=== PATIENT | male | born 1940 | race African-American/Black ===

== ENCOUNTER 2019-12-25 08:19 | Inpatient (IN) | payer SELFPAY ==
[~2019-12-25] VITALS: Ht 177.8 cm; Wt 108.4 kg
[2019-12-25 09:59] LABS: CHLORIDE 112 mEq/L (98-107)
[2019-12-25] MEDS ORDERED: ACETAMINOPHEN 325MG TABLET PO ONE (10:45)
[2019-12-25 11:13] LABS: BASOPHILS % 0.8 % (0.0-2.0); EOSINOPHILS % 1.5 % (0.0-5.0); HEMATOCRIT. 37.7 % (42.0-52.0); HEMOGLOBIN. 12.5 g/dL (14.0-18.0); LYMPHOCYTES % 21.6 % (20.0-50.0); MEAN CORPUSCULAR HEMOGLOBIN 28.7 pg (28.0-32.0); MEAN CORPUSCULAR VOLUME 86.6 fL (80.0-94.0); MEAN PLATELET VOLUME 9.2 fl (7.4-10.4); MONOCYTES % 7.6 % (2.0-8.0); NEUTROPHILS % 68.5 % (40.0-76.0); PLATELET 153 x1000/uL (130-400); RED BLOOD CELL COUNT 4.36 mill/uL (4.7-6.1); RED CELL DISTRIBUTION WIDTH 14.9 % (11.6-14.6)
[2019-12-25] MEDS ORDERED: LEVOFLOXACIN 750MG PREMIX 150 ML IV ONE (11:30)
[2019-12-25] MEDS ORDERED: METRONIDAZOLE 500 MG PREMIX 100 ML IV ONE (11:30)
[2019-12-25] MEDS ORDERED: MORPHINE SULFATE 4 MG/ML CPJ (NOT FOR IM USE) IV ONE (11:30)
[2019-12-25] MEDS: DEXT 5%/0.45% NACL 1000ML 1,000 ML IV SCH (14:10)
[2019-12-25] MEDS ORDERED: ONDANSETRON HCL 4MG/2ML INJ IV PRN (14:15)
[2019-12-25] MEDS ORDERED: MORPHINE SULFATE 2 MG/ML CPJ (NOT FOR IM USE) IV PRN (14:15)
[2019-12-25] MEDS ORDERED: HYDRALAZINE HCL 100MG TABLET PO NR (21:15)
[2019-12-25 22:00] VITALS: BP 162/98
[2019-12-26 08:00] VITALS: BP 148/67
[2019-12-26 12:00] VITALS: BP 178/80
[2019-12-26] MEDS ORDERED: LISINOPRIL 20MG TABLET PO NR (12:34)
[2019-12-26 20:28] VITALS: BP 136/70
[2019-12-26] MEDS: LISINOPRIL 20MG TABLET PO SCH (20:48)
[2019-12-27] VITALS: BP 151/58
[2019-12-27] MEDS: HYDROCODONE/ACETAMINOPHEN 10/325MG TABLET PO PRN ×2 (01:54→17:51)
[2019-12-27 04:00] VITALS: BP 161/61
[2019-12-27 08:00] VITALS: BP 163/74
[2019-12-27] MEDS: LISINOPRIL 20MG TABLET PO SCH ×2 (08:54→22:08)
[2019-12-27] MEDS: GUAIFENESIN/DM 600MG/30MG ER TAB 12HR PO PRN (09:30)
[2019-12-27] MEDS: LOSARTAN POTASSIUM 50 MG TABLET PO SCH ×2 (11:46→17:48)
[2019-12-27 12:00] VITALS: BP 171/79
[2019-12-27 16:00] VITALS: BP 168/83
[2019-12-27] MEDS: CLONIDINE 0.2MG TABLET PO SCH ×2 (16:47→22:11)
[2019-12-27] MEDS: NITROGLYCERIN OINT 1GM/INCH UDPKT TD SCH (18:56)
[2019-12-27] MEDS: DEXT 5%/0.45% NACL 1000ML 1,000 ML IV SCH (19:30)
[2019-12-27 20:00] VITALS: BP 167/75
[2019-12-28] VITALS: BP 141/70
[2019-12-28 04:00] VITALS: BP 115/64
[2019-12-28] MEDS: CLONIDINE 0.2MG TABLET PO SCH (06:33)
[2019-12-28] MEDS: NITROGLYCERIN OINT 1GM/INCH UDPKT TD SCH ×3 (06:33→22:00)
[2019-12-28] MEDS: HYDROCODONE/ACETAMINOPHEN 10/325MG TABLET PO PRN (06:38)
[2019-12-28 08:00] VITALS: BP 123/47
[2019-12-28] MEDS: LOSARTAN POTASSIUM 50 MG TABLET PO SCH ×2 (08:27→16:45)
[2019-12-28] MEDS: LISINOPRIL 20MG TABLET PO SCH ×2 (08:27→21:00)
[2019-12-28 12:00] VITALS: BP 138/75
[2019-12-28] MEDS: GUAIFENESIN/DM 600MG/30MG ER TAB 12HR PO PRN (13:17)
[2019-12-28 16:00] VITALS: BP 143/63
[2019-12-28 20:00] VITALS: BP 155/61
[2019-12-28] MEDS: CLONIDINE 0.1MG TABLET PO PRN (23:59)
[2019-12-29] VITALS: BP 177/76
[2019-12-29 04:00] VITALS: BP 168/73
[2019-12-29] MEDS: NITROGLYCERIN OINT 1GM/INCH UDPKT TD SCH (06:00)
[2019-12-29 08:00] VITALS: BP 163/64
[2019-12-29] MEDS: LOSARTAN POTASSIUM 50 MG TABLET PO SCH ×2 (09:44→17:00)
[2019-12-29] MEDS: LISINOPRIL 20MG TABLET PO SCH ×2 (09:44→21:43)
[2019-12-29] MEDS: HYDROCODONE/ACETAMINOPHEN 10/325MG TABLET PO PRN (10:26)
[2019-12-29] MEDS: DEXT 5%/0.45% NACL 1000ML 1,000 ML IV SCH (11:30)
[2019-12-29] MEDS: AMLODIPINE 10MG TABLET PO SCH (11:49)
[2019-12-29 12:00] VITALS: BP 138/63
[2019-12-29 20:00] VITALS: BP 157/55
[2019-12-30] VITALS: BP_SYST 131; BP_SYST 192; BP_DIAS 65; BP_DIAS 81
[2019-12-30] MEDS: DEXT 5%/0.45% NACL 1000ML 1,000 ML IV SCH ×2 (00:48→13:35)
[2019-12-30 04:00] VITALS: BP 172/77
[2019-12-30] MEDS: GUAIFENESIN/DM 600MG/30MG ER TAB 12HR PO PRN (07:49)
[2019-12-30] MEDS: CLONIDINE 0.1MG TABLET PO PRN ×2 (07:49→07:51)
[2019-12-30 08:00] VITALS: BP 183/69
[2019-12-30] MEDS: AMLODIPINE 10MG TABLET PO SCH (09:36)
[2019-12-30] MEDS: LOSARTAN POTASSIUM 50 MG TABLET PO SCH ×2 (09:36→17:47)
[2019-12-30] MEDS: LISINOPRIL 20MG TABLET PO SCH ×2 (09:36→21:07)
[2019-12-30 12:00] VITALS: BP 166/63
[2019-12-30] MEDS: HYDRALAZINE HCL 25MG TABLET PO SCH ×2 (13:32→21:07)
[2019-12-30 16:00] VITALS: BP 155/66
[2019-12-30 20:00] VITALS: BP 197/79
[2019-12-31] VITALS: BP 158/67
[2019-12-31] MEDS: DEXT 5%/0.45% NACL 1000ML 1,000 ML IV SCH (03:30)
[2019-12-31 04:00] VITALS: BP 158/70
[2019-12-31] MEDS: HYDRALAZINE HCL 25MG TABLET PO SCH (06:28)
[2019-12-31 06:52] LABS: VITAMIN B12 SERUM 398 pg/mL (211-911)
[2019-12-31] MEDS: LISINOPRIL 20MG TABLET PO SCH (09:44)
[2019-12-31] MEDS: LOSARTAN POTASSIUM 50 MG TABLET PO SCH (09:45)
[2019-12-31] MEDS: AMLODIPINE 10MG TABLET PO SCH (09:45)
[2019-12-31 09:49] VITALS: BP 182/65
[2019-12-31] MEDS: HYDROCODONE/ACETAMINOPHEN 10/325MG TABLET PO PRN (09:49)
[2019-12-31] MEDS: GUAIFENESIN/DM 600MG/30MG ER TAB 12HR PO PRN (09:49)
[2019-12-31] MEDS ORDERED: HYDRALAZINE HCL 50MG TABLET PO SCH (14:00)
== END 2019-12-31 13:07 | disposition left against medical advice (07) | DRG 201 ==
LOC: ER 08:42 → ENRESERV 20:26 → 6EST 22:00
PROVIDERS: ADMIT Hospitalist; ATTEND Hospitalist
DX: R00.1 Bradycardia, unspecified (principal); I11.9 Hypertensive heart disease without heart failure; F29 Unspecified psychosis not due to a substance or known physiological condition; R07.89 Other chest pain; I25.10 Atherosclerotic heart disease of native coronary artery without angina pectoris; G89.29 Other chronic pain; Z60.2 Problems related to living alone; M54.9 Dorsalgia, unspecified; Z53.29 Procedure and treatment not carried out because of patient's decision for other reasons; Z59.0 Homelessness
CPT/HCPCS: 36415; 71045; 74176; 80053; 82607; 83880; 84443; 84484; 85025; 93005; 93970; 99285; J1956; J2270; J2405; J3490